=== PATIENT | male | born 1945 | race Hispanic/Latino ===

== ENCOUNTER 2017-09-20 17:29 | Emergency (ER) | payer MEDICARE ==
[2017-09-20 17:50] VITALS: RESP 16
[2017-09-20] MEDS ORDERED: Sodium Chloride 0.9% 1,000 ML IV ONE ×2 (18:30→18:31)
[2017-09-20 18:46] LABS: BASO % 0.4 % (0.0-2.0); EOS % 0.1 % (0.0-4.0); HEMOGLOBIN 14.7 g/dL (12.0-18.0); MEAN CORPUSCULAR HEMOGLOBIN 31.6 pg (27.0-31.0); MONO # 0.4 K/uL (0.0-0.8)
[2017-09-20 18:49] LABS: LYMPH # 0.6 K/uL (1.0-4.3); LYMPH % 11.6 % (20.0-40.0); MEAN CELL VOLUME 90.9 fL (80.0-94.0); MEAN CORPUSCULAR HGB CONC 34.8 g/dL (33.0-37.0); MEAN PLATELET VOLUME 7.5 fL (7.2-11.7); MONO % 7.5 % (0.0-10.0); NEUT # 4.4 K/uL (1.8-7.0); NEUT % 80.4 % (50.0-75.0); NRBC % 0.1 % (0.0-2.0); RBC 4.65 Mil/uL (4.40-5.90); RED CELL DISTRIBUTION WIDTH 12.9 % (11.5-14.5); WHITE BLOOD COUNT 5.5 K/uL (4.8-10.8)
[2017-09-20] MEDS ORDERED: Sodium Chloride 0.9% 250 ML IV ONE (18:53)
[2017-09-20 19:21] LABS: ALB/GLOB RATIO 1.3 (1.0-2.1); ALBUMIN 3.5 g/dL (3.5-5.0); ALT/SGPT 28 U/L (21-72); AST/SGOT 31 U/L (17-59); BLOOD UREA NITROGEN 17 mg/dL (9-20); CALCIUM 8.1 mg/dl (8.6-10.4); GFR AFRICAN-AMERICAN > 60; GFR NON-AFRICAN AMERICAN 54; LIPASE 82 U/L (23-300)
--- NOTE | 2017-09-20 19:38 | C.PDOC ---
History Of Present Illness 71yo male, presents to ED for evaluation of abdominal discomfort, nausea, vomiting and diarrhea after he ate some frozen shrimp 2 days ago. Patient states he has been well hydrated and now the vomiting and diarrhea have subsided. Patient states he took immodium x 4 times which also provided him relief. He reports presenting today due to occasional chills and he is concerned about an infection. He denies any fever, and offers no other medical complaints. Time Seen by Provider: 09/20/17 18:14 Chief Complaint (Nursing): GI Problem History Per: Patient History/Exam Limitations: no limitations Onset/Duration Of Symptoms: Days Current Symptoms Are (Timing): Still Present Location Of Pain/Discomfort: Diffuse Associated Symptoms: Vomiting (now resolved), Diarrhea (now resolved) Past Medical History Reviewed: Historical Data, Nursing Documentation, Vital Signs Vital Signs: Last Vital Signs Temp 98.4 F 09/20/17 17:41 Pulse 86 09/20/17 17:41 Resp 16 09/20/17 17:41 BP 105/66 09/20/17 17:41 Pulse Ox 96 09/20/17 19:39 - Medical History PMH: Hypothyroidism Surgical History: No Surg Hx Family History: States: No Known Family Hx - Social History Hx Alcohol Use: No Hx Substance Use: No - Immunization History Hx Tetanus Toxoid Vaccination: No Hx Influenza Vaccination: No Hx Pneumococcal Vaccination: No Review Of Systems Except As Marked, All Systems Reviewed And Found Negative. Constitutional: Positive for: Chills. Negative for: Fever Gastrointestinal: Negative for: Vomiting, Abdominal Pain, Diarrhea Physical Exam - Physical Exam Appears: Non-toxic, No Acute Distress Skin: Normal Color, Warm, Dry Head: Atraumatic, Normacephalic Eye(s): bilateral: Normal Inspection, PERRL, EOMI Neck: Normal ROM, Supple Chest: Symmetrical Cardiovascular: Rhythm Regular Respiratory: Normal Breath Sounds, No Wheezing Gastrointestinal/Abdominal: Normal Exam, Soft, No Tenderness Neurological/Psych: Oriented x3 ED Course And Treatment - Laboratory Results Result Diagrams: 09/20/17 18:47 09/20/17 19:10 O2 Sat by Pulse Oximetry: 96 (RA) Pulse Ox Interpretation: Normal - Radiology CXR: Interpreted by Me CXR Interpretation: Yes: No Acute Disease - Other Rad abd x 2 X-Ray: Interpreted by Me (+ fluid in bowel c/w diarrhea) Reevaluation Time: 19:38 Reassessment Condition: Improved Medical Decision Making Medical Decision Making: food born intox, prob unsafe shrimp 2 days ago N/V resolved diarrhea improving. labs wnl and NOT c/w infection rigors and chills prob related to food toxins Disposition Doctor Will See Patient In The: Office Counseled Patient/Family Regarding: Studies Performed, Diagnosis - Disposition Referrals: [facility] [Outside] [facility] [Outside] Disposition: HOME/ ROUTINE Disposition Time: 19:39 Condition: GOOD Additional Instructions: Continue Gatorade and plenty of fluids Eletrolytes normal today BRAT diet: Bananas, white rice, apples, toast/bread Pepcid 20 mg twice a day for 3 days- lowers stomach acid and gastritis Avoid Imodium so food-born toxins may pass from the GI tract. Instructions: Food Poisoning, Diarrhea in Adolescents and Adults Forms: [facility] (Korean) - Clinical Impression Clinical Impression: Gastroenteritis - Scribe Statement The provider has reviewed the documentation as recorded by the Scribe (Inga Bull) Provider Attestation: All medical record entries made by the Scribe were at my direction and personally dictated by me. I have reviewed the chart and agree that the record accurately reflects my personal performance of the history, physical exam, medical decision making, and the department course for this patient. I have also personally directed, reviewed, and agree with the discharge instructions and disposition.
[2017-09-20 19:45] LABS: URINE BACTERIA OCC (<OCC); URINE BILIRUBIN NEGATIVE (NEGATIVE); URINE BLOOD 1+ (NEGATIVE); URINE CLARITY Hazy (Clear); URINE COLOR Yellow (YELLOW); URINE GLUCOSE (UA) NORMAL (Normal); URINE LEUKOCYTE ESTERASE NEG Leu/uL (Negative); URINE PROTEIN 1+ mg/dL (NEGATIVE); URINE UROBILINOGEN NORMAL mg/dL (0.2-1.0)
[2017-09-20 20:09] VITALS: BP 109/66; PULSE 70; TEMP 98.9
[2017-09-20 20:13] VITALS: O2SAT 96
--- NOTE | 2017-09-21 08:27 | RAD ---
Chest x-ray single frontal view History: Abdominal pain. Comparison: None available. Findings: Mild venous congestion. Right hilar prominence. Tortuous aorta. Degenerative changes in the spine. Distended loops of small bowel seen throughout the abdomen. Air and stool seen within the colon. Degenerative changes in the bilateral hips with subchondral sclerosis. Calcified phleboliths in pelvis. Impression: Nonspecific bowel gas pattern with some distended loops of small bowel in the abdomen. Clinical correlation.
== END 2017-09-20 20:10 | disposition home or self-care (01) ==
LOC: C.ER 17:29
DX: K52.9 Noninfective gastroenteritis and colitis, unspecified (principal)
CPT/HCPCS: 74022; 80053; 81001; 83690; 85025; 96361; 96374; 96375; 99283; C9113; J1885; J7040